=== PATIENT | female | born 1995 ===

== ENCOUNTER 2016-09-02 13:00 | Emergency (ER) | payer OTHER ==
[~2016-09-02] VITALS: Ht 167.6 cm; Wt 77.1 kg
[2016-09-02 13:10] VITALS: Ht 167.6 cm; Wt 77.1 kg
--- NOTE | 2016-09-02 14:10 | DIAGNOSTIC IMAGING REPORT ---
LEFT TIBIA/FIBULA 2 VIEWS ROUTINE CLINICAL HISTORY: Left lower leg pain following fall. COMPARISON: None FINDINGS: No acute fracture of the left tibia or fibula is identified. Alignment of the left ankle and knee is anatomic. Talar dome is intact. IMPRESSION: No acute fracture of the left tibia or fibula. Electronically signed by: Grant Dennis M.D. 09/02/2016 2:08 PM Dictated Date/Time: 09/02/2016 2:07 PM
--- NOTE | 2016-09-02 14:32 | EMERGENCY ROOM VISIT NOTE ---
ED Visit Note First contact with patient: 13:25 CHIEF COMPLAINT: Leg pain HISTORY OF PRESENT ILLNESS: This 20-year-old female patient presents to the emergency department ambulatory complaining of pain in the left leg. The patient reports that she fell on ice 1 week ago, landing onto the left leg. She states she has had persistent pain in the left lower leg and this discomfort worsened after being on her feet all day at work yesterday. She reports the pain is worse with weightbearing. She rates the discomfort a 7/10 and has not been taking any medications at home for the pain. She denies any numbness or weakness in the leg. No redness, swelling or warmth of the leg. She denies any other injuries. REVIEW OF SYSTEMS: A 6 system review of systems was completed with positives and pertinent negatives listed in the HPI. ALLERGIES: No known drug allergies MEDICATIONS: No chronic medications PMH: No significant past medical history. SOCIAL HISTORY: The patient is a [employer] student and lives with roommates. PHYSICAL EXAM: Vital Signs: Reviewed Nurse's notes, vital signs stable. GENERAL : This is a 20-year-old female, no acute distress, but appears in pain, well- developed, well-nourished. MENTAL STATUS: Alert, oriented to person place and time, and cooperative. MUSCULOSKELETAL: There is tenderness to palpation of the left anterior proximal tibia. No tenderness of the calf, knee or femur. No tenderness of the ankle. No ecchymosis or swelling. There is no visual deformity. The foot and toes are warm and well-perfused. Dorsalis pedis pulse 2+. Sensation to pain and light touch is intact. Capillary refill less than 2 seconds. RADIOGRAPHIC FINDINGS: LEFT TIBIA/FIBULA 2 VIEWS ROUTINE CLINICAL HISTORY: Left lower leg pain following fall. COMPARISON: None FINDINGS: No acute fracture of the left tibia or fibula is identified. Alignment of the left ankle and knee is anatomic. Talar dome is intact. IMPRESSION: No acute fracture of the left tibia or fibula. EMERGENCY DEPARTMENT COURSE: I examined the patient. X-rays of the left tibia/fibula were reviewed by myself and read by radiology and reveal no acute findings. Conservative measures were discussed. The patient was encouraged to follow-up with [facility]. She verbalized understanding of my assessment and treatment plan. The patient was discharged home in good condition. DIAGNOSIS: Leg pain Current/Historical Medications No Active Prescriptions or Reported Meds Allergies Coded Allergies: No Known Allergies (Unverified , 09/02/16) Vital Signs Date Time Temp Pulse Resp B/P Pulse Ox O2 Delivery O2 Flow Rate FiO2 09/02/16 14:45 80 16 115/74 99 09/02/16 13:10 37.0 98 18 123/78 99 Room Air Departure Information Impression Primary Impression: Leg pain, left Dispostion Home / Self-Care Condition GOOD Prescriptions No Active Prescriptions or Reported Meds Referrals No Doctor, Assigned (PCP) Patient Instructions My [facility] Additional Instructions You have been treated in the Emergency Department for left leg pain. X-rays showed no fractures of your leg. For pain control, you can use the following [id number] medicines (if >12 yo): - Regular strength (325mg/tab) Tylenol (acetaminophen) 2 tabs every 4-6 hours as needed. Do not exceed 12 tablets in a 24 hour period. Avoid taking more than 4 grams (4000 mg) of Tylenol per day. This includes any other sources of acetaminophen you may take on a regular basis. - Regular strength (200 mg/tab) Advil (ibuprofen) 1-2 tabs every 4-6 hours as needed. Do not exceed a dose of 3200 mg per day. If this is a recent injury (<24 hrs), ice can be applied to the area of pain for the first 3 days to help decrease pain and inflammation. Follow-up with [facility] as needed. Return to the Emergency Department if your current symptoms worsen despite treatment course outlined above, or if you develop any of the following symptoms : intractable pain despite aforementioned treatment course or new onset of numbness or tingling of the foot.
[2016-09-02 14:45] VITALS: BP 115/74; PULSE 80; O2SAT 99
== END 2016-09-02 14:45 | disposition home or self-care (01) ==
LOC: C.EDB 13:01 → C.EDD 14:45
DX: M79.605 Pain in left leg (principal); W00.0XXA Fall on same level due to ice and snow, initial encounter

== ENCOUNTER 2016-09-26 11:03 | Emergency (ER) | payer OTHER ==
[~2016-09-26] VITALS: Ht 167.6 cm; Wt 79.5 kg
[2016-09-26 11:12] VITALS: TEMP 37; Ht 167.6 cm; Wt 79.5 kg
[2016-09-26] MEDS ORDERED: ACETAMINOPHEN 325 MG TAB ONE (11:34)
[2016-09-26] MEDS ORDERED: ACETAMINOPHEN 325 MG TAB PO STA (11:34)
[2016-09-26] MEDS ORDERED: KETOROLAC TROMETHAMINE 30 MG/ML VIAL IV STA (11:49)
[2016-09-26 12:21] LABS: BASO % 0.5 %; BASO ABS # 0.04 K/uL (0-0.2); COMPLETE YES; EOS % 1.8 %; HEMATOCRIT 41.2 % (37-47); LYMPH ABS # 3.02 K/uL (1.2-3.4); MEAN CELL VOLUME 83.2 fL (80-100); MEAN CORPUSCULAR HEMOGLOBIN 29.1 pg (25-34); MEAN PLATELET VOLUME 9.2 fL (7.4-10.4); MONO % 8.5 %; NEUT % 53.2 %; PLATELET COUNT 296 K/uL (130-400); RED BLOOD COUNT 4.95 M/uL (4.2-5.4); WHITE BLOOD COUNT 8.38 K/uL (4.8-10.8)
[2016-09-26 12:46] LABS: BLOOD UREA NITROGEN 8 mg/dl (7-18); CREATININE 0.72 mg/dl (0.60-1.20); GLUCOSE 74 mg/dl (70-99)
[2016-09-26 12:47] LABS: ALKALINE PHOSPHATASE 122 U/L (45-117); ALT/SGPT 15 U/L (12-78); BUN/CREATININE RATIO 11.3 (10-20); CALCIUM 9.1 mg/dl (8.5-10.1); CARBON DIOXIDE 27 mmol/L (21-32); CHLORIDE 104 mmol/L (98-107); SODIUM 140 mmol/L (136-145)
[2016-09-26 13:04] LABS: URINE APPEARANCE CLEAR (CLEAR); URINE BILIRUBIN NEG (NEG); URINE COLOR YELLOW; URINE NITRITE NEG (NEG); URINE PH 6.5 (4.5-7.5); URINE SPECIFIC GRAVITY 1.024 (1.000-1.030); UROBILINOGEN NEG (NEG); ZZUR CULT IF INDIC CLEAN CATCH NO
[2016-09-26 13:05] LABS: MANUAL MICROSCOPIC REQUIRED? NO; REVIEW REQ? NO
[2016-09-26 13:17] LABS: POTASSIUM 4.3 mmol/L (3.5-5.1)
--- NOTE | 2016-09-26 14:43 | DIAGNOSTIC IMAGING REPORT ---
EXAMINATION: PELVIC ULTRASOUND CLINICAL HISTORY: dysmenorrhea PELVIC PAIN COMPARISON STUDY: None FINDINGS: The uterus measured 8.2 cm. The endometrial stripe measured 11 mm. The right ovary measured 4 cm maximum dimension with normal vascular flow. The left ovary measured 3.8 cm maximum dimension with normal vascular flow. There is no ultrasonographic evidence of ovarian torsion. It should be noted that ovarian torsion can be present with normal Doppler ultrasonographic findings. There was no evidence of pathologic free pelvic fluid. IMPRESSION: Normal study Electronically signed by: Morgan Masters M.D. 09/26/2016 2:42 PM Dictated Date/Time: 09/26/2016 2:39 PM
[2016-09-26] MEDS ORDERED: IBUP-1451 PO (14:51)
--- NOTE | 2016-09-26 14:53 | EMERGENCY ROOM VISIT NOTE ---
History First contact with patient: 11:34 Chief Complaint: ABDOMINAL PAIN Stated Complaint: ABD. PAIN, HEAVY CRAMPS Nursing Triage Summary: "This is the first day of my period and I am having really bad cramps." pt states she did not take any motrin or tylenol for the pain prior to coming to the er. History of Present Illness The patient is a 20 year old female who presents to the Emergency Room with complaints of menstrual cramps which began this morning. The patient states that her menstrual period began this morning and she developed severe menstrual cramps today. She states that she does frequently have very painful periods and has had to go to the emergency department at [facility] previously. She has not had an ultrasound or workup by [facility]. She does state that her menstrual period was approximately one week late this month. She rates the discomfort an 8/10 and states it is a crampy pain in her lower abdomen. She did not take anything for the pain. She denies any urinary symptoms, vaginal discharge, nausea or vomiting. She denies any fevers/chills. Review of Systems A complete 10-point Review of Systems was discussed with the patient, with pertinent positives and negatives listed in the History of Present Illness. All remaining Review of Systems questions can be considered negative unless otherwise specified. Social History Smoking Status: Never Smoker Current/Historical Medications Scheduled PRN Ibuprofen Tab (Motrin), 800 MG PO Q8H PRN for Pain Allergies Coded Allergies: No Known Allergies (Unverified , 09/26/16) Physical Exam Vital Signs Date Time Temp Pulse Resp B/P Pulse Ox O2 Delivery O2 Flow Rate FiO2 09/26/16 15:08 59 14 114/70 99 Room Air 09/26/16 11:12 37.0 76 18 110/70 96 Room Air Physical Exam VITALS: Vitals are noted on the nurse's note and reviewed by myself. Vital signs stable. GENERAL: This is a 20-year-old female, in no acute distress, nondiaphoretic, well-developed well-nourished. SKIN: Capillary reflex less than 2 seconds. HEART: Regular rate and rhythm without murmurs gallops or rubs. LUNGS: Clear to auscultation bilaterally without wheezes, rales or rhonchi. ABDOMEN: Positive bowel sounds x 4. Mild tenderness at the suprapubic region. No guarding or rebound tenderness. NEURO: Patient was alert and oriented to person place and time. Medical Decision & Procedures ER Provider Diagnostic Interpretation: EXAMINATION: PELVIC ULTRASOUND CLINICAL HISTORY: dysmenorrhea PELVIC PAIN COMPARISON STUDY: None FINDINGS: The uterus measured 8.2 cm. The endometrial stripe measured 11 mm. The right ovary measured 4 cm maximum dimension with normal vascular flow. The left ovary measured 3.8 cm maximum dimension with normal vascular flow. There is no ultrasonographic evidence of ovarian torsion. It should be noted that ovarian torsion can be present with normal Doppler ultrasonographic findings. There was no evidence of pathologic free pelvic fluid. IMPRESSION: Normal study Laboratory Results 09/26/16 12:00 Red Blood Count 4.95, Mean Corpuscular Volume 83.2, Mean Corpuscular Hemoglobin 29.1, Mean Corpuscular Hemoglobin Concent 35.0, Mean Platelet Volume 9.2, Neutrophils (%) (Auto) 53.2, Lymphocytes (%) (Auto) 36.0, Monocytes (%) (Auto) 8.5, Eosinophils (%) (Auto) 1.8, Basophils (%) (Auto) 0.5, Neutrophils # (Auto) 4.46, Lymphocytes # (Auto) 3.02, Monocytes # (Auto) 0.71, Eosinophils # (Auto) 0.15, Basophils # (Auto) 0.04 09/26/16 12:00 09/26/16 12:51 Test 09/26/16 12:00 09/26/16 12:51 White Blood Count 8.38 K/uL (4.8-10.8) Red Blood Count 4.95 M/uL (4.2-5.4) Hemoglobin 14.4 g/dL (12.0-16.0) Hematocrit 41.2 % (37-47) Mean Corpuscular Volume 83.2 fL (80-100) Mean Corpuscular Hemoglobin 29.1 pg (25-34) Mean Corpuscular Hemoglobin Concent 35.0 g/dl (32-36) Platelet Count 296 K/uL (130-400) Mean Platelet Volume 9.2 fL (7.4-10.4) Neutrophils (%) (Auto) 53.2 % Lymphocytes (%) (Auto) 36.0 % Monocytes (%) (Auto) 8.5 % Eosinophils (%) (Auto) 1.8 % Basophils (%) (Auto) 0.5 % Neutrophils # (Auto) 4.46 K/uL (1.4-6.5) Lymphocytes # (Auto) 3.02 K/uL (1.2-3.4) Monocytes # (Auto) 0.71 K/uL (0.11-0.59) Eosinophils # (Auto) 0.15 K/uL (0-0.5) Basophils # (Auto) 0.04 K/uL (0-0.2) RDW Standard Deviation 37.4 fL (36.4-46.3) RDW Coefficient of Variation 12.5 % (11.5-14.5) Immature Granulocyte % (Auto) 0.0 % Immature Granulocyte # (Auto) 0.00 K/uL (0.00-0.02) Urine Color YELLOW Urine Appearance CLEAR (CLEAR) Urine pH 6.5 (4.5-7.5) Urine Specific [place] 1.024 (1.000-1.030) Urine Protein NEG (NEG) Urine Glucose (UA) NEG (NEG) Urine Ketones NEG (NEG) Urine Occult Blood 3+ (NEG) Urine Nitrite NEG (NEG) Urine Bilirubin NEG (NEG) Urine Urobilinogen NEG (NEG) Urine Leukocyte Esterase TRACE (NEG) Urine WBC (Auto) 1-5 /hpf (0-5) Urine RBC (Auto) >30 /hpf (0-4) Urine Hyaline Casts (Auto) 0 /lpf (0-5) Urine Epithelial Cells (Auto) 10-20 /lpf (0-5) Urine Bacteria (Auto) NEG (NEG) Urine Test NEG (NEG) Anion Gap 9.0 mmol/L (3-11) Est Creatinine Clear Calc Drug Dose 132.5 ml/min Estimated GFR () 139.7 Estimated GFR (Non- 120.6 BUN/Creatinine Ratio 11.3 (10-20) Calcium Level 9.1 mg/dl (8.5-10.1) Total Bilirubin 0.4 mg/dl (0.2-1) Alanine Aminotransferase (ALT/SGPT) 15 U/L (12-78) Alkaline Phosphatase 122 U/L (45-117) Total Protein 7.9 gm/dl (6.4-8.2) Albumin 3.9 gm/dl (3.4-5.0) Globulin 4.0 gm/dl (2.5-4.0) Albumin/Globulin Ratio 1.0 (0.9-2) Aspartate Amino Transf (AST/SGOT) 15 U/L (15-37) Medications Administered Medications (Trade) Dose Ordered Sig/Humberto Route Start Time Stop Time Status Last Admin Dose Admin Acetaminophen (Tylenol Tab) 650 mg NOW STAT PO 09/26/16 11:34 09/26/16 11:35 DC 09/26/16 11:42 650 MG Ketorolac Tromethamine (Toradol Inj) 30 mg NOW STAT IV 09/26/16 11:49 09/26/16 11:51 DC 09/26/16 12:16 30 MG Medical Decision Differential diagnosis includes dysmenorrhea, endometriosis, ovarian cyst, ovarian torsion, ectopic , among others. The patient was evaluated as above. Labs were drawn and IV access was obtained. Imaging studies were performed and read by radiology as above. The patient was medicated with 1 g Tylenol and 30 mg Toradol IV. The patient was reassessed multiple times during their stay in the emergency department and remained in stable condition. The patient is a 20-year-old female who presents today complaining of painful menstrual cramps. The patient has had this in the past. For this reason, I did choose to perform an ultrasound today, as the patient should have referral to [facility] for her recurrent dysmenorrhea. Labs revealed no leukocytosis, anemia or concerning electrolyte abnormalities. Urinalysis was not suggestive of infection. Urine was negative. Pelvic ultrasound was performed and showed no acute findings. She was treated with IV Toradol with moderate improvement of her symptoms. The patient was given a prescription for 800 mg ibuprofen and referral for [facility]. She will return for any new/concerning symptoms. Based on the patient's presentation, lab results, and imaging studies, I feel the patient is stable for outpatient treatment. Discharge instructions were reviewed with the patient. The patient verbalized understanding of my assessment and treatment plan and was discharged home in good condition. Impression Primary Impression: Dysmenorrhea Departure Information Dispostion Home / Self-Care Condition GOOD Prescriptions Ibuprofen Tab (MOTRIN) 800 Mg Tab 800 MG PO Q8H Y for Pain, #20 TAB For Initial Treatment Prov: Herlinda Lawrence, MIGUE 09/26/16 Referrals No Doctor, Assigned (PCP) Yaneli Valverde D.O. Patient Instructions My [facility] Additional Instructions You have been treated in the Emergency Department for your Abdominal Pain. Laboratory results and imaging studies have ruled out any emergent causes for your abdominal pain which would warrant admission or surgery. Ibuprofen: Take 1 tablet every 8 hours as needed for pain. In addition, you may take Tylenol, 1-2 regular strength tablets every 4-6 hours as needed for pain. Drink plenty of water and stay well hydrated. Follow-up with [facility] for further evaluation of your symptoms. Call for appointment. Return to the emergency department if your symptoms persist despite treatment plan outlined above or if you develop any new/concerning symptoms.
[2016-09-26 15:08] VITALS: BP 114/70; PULSE 59; O2SAT 99
== END 2016-09-26 15:10 | disposition home or self-care (01) ==
LOC: C.EDB 11:04 → C.EDC 15:10
DX: N94.6 Dysmenorrhea, unspecified (principal)